=== PATIENT | male | born 1970 | race African-American/Black ===

== ENCOUNTER 2018-04-03 23:26 | Emergency (ER) | payer OTHER, MEDICAID ==
[~2018-04-03] VITALS: Ht 172.7 cm; Wt 73.0 kg
[2018-04-04] MEDS ORDERED: HYDROCODONE/ACETAMINOPHEN 5/325MG TABLET PO ONE (01:15)
[2018-04-04 01:49] VITALS: BP 115/72
== END 2018-04-04 01:51 | disposition home or self-care (01) ==
LOC: ER 23:26
DX: H60.91 Unspecified otitis externa, right ear (principal); F17.210 Nicotine dependence, cigarettes, uncomplicated; F12.10 Cannabis abuse, uncomplicated
CPT/HCPCS: 99283; 99406; Z7610